=== PATIENT | female | born 1980 | race Asian ===

== ENCOUNTER 2017-04-15 20:08 | Emergency (ER) | payer OTHER ==
[~2017-04-15] VITALS: Ht 162.6 cm; Wt 75.0 kg
[~2017-04-15 20:08] MED LIST: FOLI-49 PO; OFLO5DRO46 LEFT EYE
[2017-04-15 20:10] VITALS: Ht 162.6 cm; Wt 75.0 kg
[2017-04-15] MEDS ORDERED: TETRACAINE 0.5% 4 ML OPH LEFT EYE ONE (21:30)
[2017-04-15] MEDS ORDERED: FLUORESCEIN STRIP LEFT EYE ONE (21:30)
[2017-04-15] MEDS ORDERED: ACETAMINOPHEN 500 MG TAB PO STA (21:48)
[2017-04-15] MEDS ORDERED: ERYT1OIN6 LEFT EYE (22:23)
[2017-04-15] MEDS ORDERED: ACET500C5 PO (22:24)
[2017-04-15 22:40] VITALS: BP 118/78; PULSE 64; RESP 18; TEMP 98
--- NOTE | 2017-04-16 00:58 | ERD ---
ER Documentation Chief Complaint Date/Time DATE: 04/16/17 TIME: 00:54 Chief Complaint c/o left eye pain. States was poked by own child. HPI 36-year-old female who presents the emergency department today complaining of left eye pain after being poked in the eye by her child earlier this evening. States this is happened one time in the past. States she is having difficulty opening her eye. Denies any fevers or chills. ROS All systems reviewed and are negative except as per history of present illness. Medications Home Meds Active Scripts Acetaminophen* (Tylophen*) 500 Mg Capsule, 1 CAP PO Q6H Y for PAIN AND OR ELEVATED TEMP, #30 CAP Prov:JO-ANN PEREZ PA-C 04/15/17 Erythromycin (Erythromycin Opth) 3.5 Gm Oint..gm., 1 APPLIC LEFT EYE QID for 7 Days, #1 Prov:JO-ANN PEREZ PA-C 04/15/17 Ofloxacin* (Ocuflox*) 0.3%-5 Ml Ophth Drops, 1 DROP LEFT EYE QID, #1 BOTTLE Prov:SEDA PRYOR PA-C 04/25/16 Reported Medications Folic Acid* (Folic Acid*) 1 Mg Tablet, 5 MG PO DAILY, TAB 05/24/14 Allergies Allergies: Coded Allergies: No Known Allergy (Unverified , 04/25/16) PMhx/Soc History of Surgery: Yes () Anesthesia Reaction: No Hx Neurological Disorder: No Hx Respiratory Disorders: No Hx Cardiac Disorders: No Hx Psychiatric Problems: No Hx Miscellaneous Medical Probl: Yes (ECTOPIC PREG) Hx Alcohol Use: No Hx Substance Use: No Hx Tobacco Use: No Smoking Status: Never smoker Physical Exam Vitals Vital Signs Date Time Temp Pulse Resp B/P Pulse Ox O2 Delivery O2 Flow Rate FiO2 04/15/17 22:40 98.0 64 18 118/78 99 Room Air 04/15/17 20:10 98.6 71 18 145/78 98 Physical Exam Const: NAD Head: Atraumatic Eyes: Right eye conjunctival normal. Left eye with mild conjunctival erythema, eye tearing. PERRLA. EOM intact. Non tender orbits. ENT: Normal External Ears, Nose and Mouth. Neck: Full range of motion..~ No meningismus. Resp: Clear to auscultation bilaterally Cardio: Regular rate and rhythm, no murmurs Skin: No petechiae or rashes Neur: Awake and alert Psych: Normal Mood and Affect Results 24 hrs Current Medications Medications (Trade) Dose Ordered Sig/Maik Route PRN Reason Start Time Stop Time Status Last Admin Dose Admin Tetracaine HCl (Tetracaine 0.5% Steri-Unit Noemi) 1 drop ONCE ONCE LEFT EYE 04/15/17 21:30 04/15/17 21:31 DC Fluorescein Sodium ([id number]) 1 strip ONCE ONCE LEFT EYE 04/15/17 21:30 04/15/17 21:31 DC Acetaminophen (Tylenol Tab) 500 mg ONCE STAT PO 04/15/17 21:48 04/15/17 21:49 DC 04/15/17 21:53 Procedures/MDM This is a 36-year-old female who presents the emergency department today complaining of left eye pain after being poked in the eye. Patient was having a hard time opening her eye but I was able to check her visual acuity by having her telemetry whether she was able to see the number of my fingers. Patient is afebrile and otherwise well-appearing. I did use tetracaine and check the patient under fluorosciene with the darden lamp and she appeared to have evidence of a corneal abrasion as there was some increased uptake.. There is no evidence of corneal ulcer. She is nontender in the orbits and I have low suspicion for orbital fracture, orbital cellulitis, preseptal cellulitis. Low suspicion for globe rupture, hyphema, acute narrow angle glaucoma. Patient was given tylenol here in the emergency department. She will get a prescription for Tylenol and erythromycin for home that would cover her for corneal abrasion. Instructed to follow-up with her primary care doctor as well as was given referral for [facility]. At this time the patient is stable for discharge and outpatient management. Patient should follow up with their PCP in the next 1-2 days. They may return to the emergency department sooner for any persistent or worsening of symptoms. Patient understood and agreed with the plan. Departure Diagnosis: Primary Impression: Eye injury Encounter type: initial encounter Laterality: left Qualified Code: S05.92XA - Left eye injury, initial encounter Condition: Fair Patient Instructions: Corneal Abrasion Referrals: DELORES ANDERSON (PCP) [facility] Hours: Mon - Wed 9:00 AM - 5:00 PM Additional Instructions: Call your primary care doctor TOMORROW for an appointment during the next 1-2 days.See the doctor sooner or return here if your condition worsens before your appointment time. Make an appointment at [facility] [place] or eye doctor Take antibiotics as prescribed. Take Tylenol or Motrin for pain JO-ANN PEREZ PA-C Apr 16, 2017 00:58
== END 2017-04-15 22:40 | disposition home or self-care (01) ==
LOC: FTE 20:08
DX: S05.92XA Unspecified injury of left eye and orbit, initial encounter (principal); W50.0XXA Accidental hit or strike by another person, initial encounter; Y92.9 Unspecified place or not applicable
CPT/HCPCS: Z7502; Z7610; 99283

== ENCOUNTER 2017-11-25 11:41 | Emergency (ER) | END 2017-11-25 15:01 | disposition home or self-care (01) ==

== ENCOUNTER 2018-08-10 15:27 | Emergency (ER) | payer OTHER ==
[~2018-08-10] VITALS: Wt 69.3 kg
[~2018-08-10 15:27] MED LIST changes: +ACET500C5 PO; +ERYT1OIN6 LEFT EYE; +FERR240T9 PO; +POLY10DR19 LEFT EYE
[2018-08-10 15:44] VITALS: BP 103/71; PULSE 80; RESP 19
[2018-08-10] MEDS ORDERED: TETRACAINE 0.5% 4 ML OPH LEFT EYE ONE (17:00)
[2018-08-10] MEDS ORDERED: FLUORESCEIN STRIP RIGHT EYE ONE (17:00)
[2018-08-10] MEDS ORDERED: SULF15DR19 LEFT EYE (17:15)
--- NOTE | 2018-08-10 17:18 | ERD ---
ER Documentation Chief Complaint Chief Complaint bib self, cc: left eye redness / pain since last night,injury by child thmb HPI This patient is a 37-year-old female who states that last night she was playing with her child and the child accidentally poked her in the left eye. She has moderate pain but she took Motrin and now her pain is mild. Slightly blurry vision on the left side. She does not wear glasses or contacts. No photosensitivity. ROS All systems reviewed and are negative except as per history of present illness. Medications Home Meds Active Scripts Sulfacetamide Sodium* (Bleph-10*) 10%-15 Ml Opht Drops, 1 DROP LEFT EYE Q2H, #1 EA Prov:MICKEY KITCHEN PA-C 08/10/18 Polymyxin B Sulfate-TMP* (Polymyxin B-TMP Eye Drops*) 10 Ml Drops, 1 DROP LEFT EYE QID for 7 Days, EA Prov:JODEE VALDEZC 11/25/17 Acetaminophen* (Tylophen*) 500 Mg Capsule, 1 CAP PO Q6H PRN for PAIN AND OR ELEVATED TEMP, #30 CAP Prov:JO-ANN PEREZ PA-C 04/15/17 Erythromycin (Erythromycin Opth) 3.5 Gm Oint..gm., 1 APPLIC LEFT EYE QID for 7 Days, #1 Prov:JO-ANN PEREZ PA-C 04/15/17 Ofloxacin* (Ocuflox*) 0.3%-5 Ml Ophth Drops, 1 DROP LEFT EYE QID, #1 BOTTLE Prov:SEDA PRYOR PA-C 04/25/16 Reported Medications Ferrous Gluconate (Iron) 1 Tab Tablet, 1 TAB PO 01/04/15 Folic Acid* (Folic Acid*) 1 Mg Tablet, 1 MG PO DAILY, TAB 01/04/15 Folic Acid* (Folic Acid*) 1 Mg Tablet, 5 MG PO DAILY, TAB 05/24/14 Allergies Allergies: Coded Allergies: terbutaline (Verified Allergy, Mild, palpitation, shivering, 11/25/17) Uncoded Allergies: salbutamol (Adverse Reaction, Mild, palpitation and shivering, 11/25/17) medication side effects PMhx/Soc History of Surgery: Yes () Anesthesia Reaction: No Hx Neurological Disorder: No Hx Respiratory Disorders: No Hx Cardiac Disorders: No Hx Psychiatric Problems: No Hx Miscellaneous Medical Probl: Yes (ECTOPIC PREG) Hx Alcohol Use: No Hx Substance Use: No Hx Tobacco Use: No Smoking Status: Never smoker FmHx Family History: No diabetes Physical Exam Vitals Vital Signs Date Temp Pulse Resp B/P (MAP) Pulse Ox O2 O2 Flow FiO2 Time Delivery Rate 08/10/18 98.3 80 19 103/71 100 15:44 (82) Physical Exam Const: No acute distress Head: Atraumatic Eye Exam : Visual Acuity: Left eye 20/40, right eye 20/30, both 20/30 Visual [place]: Intact in all four quadrants bilaterally Lac ducts/glands: No swelling Lids w/ evertion: Normal, no foreign body Conj/[place]: Clear, negative Fluorescein/[place]'s Anterior Chamber: Clear Retina exam: No obvious abnormality ENT: Normal External Ears, Nose and Mouth. Neck: Full range of motion. No meningismus. Resp: Clear to auscultation bilaterally Cardio: Regular rate and rhythm, no murmurs Results 24 hrs Current Medications Medications Dose Sig/Maik Start Time Status Last (Trade) Ordered Route PRN Stop Time Admin Dose Reason Admin Fluorescein 1 strip ONCE ONCE 08/10/18 DC Sodium RIGHT EYE 17:00 ([id number] 08/10/18 17:01 p) Tetracaine 1 drop ONCE ONCE 08/10/18 DC HCl LEFT EYE 17:00 (Tetracaine 08/10/18 17:01 0.5% Steri-Unit Noemi) Procedures/MDM Patient presents after eye injury that occurred yesterday. Her exam is normal. No obvious corneal abrasions on fluorescein stain. Her visual acuity is within normal limits. No signs of ocular emergency. Patient discharged with Bleph-10. She was also given referral to [facility] if her symptoms do not resolve or get worse. Patient counseled regarding my diagnostic impression and care plan. Prior to discharge all questions answered. Pt agrees with treatment plan and understands strict return precautions. Pt is instructed to follow up with primary care provider within 24-48 hours. Precautionary instructions provided including instructions to return to the ER if not improving or for any worsening or changing symptoms or concerns. Departure Diagnosis: Primary Impression: Eye injury Condition: Stable Patient Instructions: Contusion, Eye Referrals: [facility] Hours: Mon - Fri 9:00 AM - 5:00 PM Additional Instructions: Call your primary care doctor TOMORROW for an appointment during the next 1-2 days.See the doctor sooner or return here if your condition worsens before your appointment time. MICKEY KITCHEN PA-C Aug 10, 2018 17:18
== END 2018-08-10 17:41 | disposition home or self-care (01) ==
LOC: FTE 15:27
DX: S05.92XA Unspecified injury of left eye and orbit, initial encounter (principal); X58.XXXA Exposure to other specified factors, initial encounter; Y92.9 Unspecified place or not applicable
CPT/HCPCS: Z7502; Z7610; 99283